=== PATIENT | female | born 1960 | race Caucasian/White ===

== ENCOUNTER → 2018-09-30 08:00 | Outpatient (CLI) | payer OTHER ==
[2016-03-11 16:58] VITALS: BMI 28.5
[~2018-09-30 08:00] MED LIST: BIOTIN5 MG PO; HYDROCODONE-APA1 TAB PO; SYNTHROID125 MCG PO; VITAMIN D31000 UNI2 PO
== END | disposition home or self-care (01) ==
LOC: D.MAMMO 08:00
PROVIDERS: ATTEND Emergency Medicine
DX: N63.11 Unspecified lump in the right breast, upper outer quadrant (principal); N63.12 Unspecified lump in the right breast, upper inner quadrant